=== PATIENT | male | born 2000 | race Caucasian/White ===

== ENCOUNTER → 2022-05-26 12:08 | Outpatient (CLI) | payer OTHER, MEDICAID, SELFPAY ==
--- NOTE | 2022-05-26 12:15 | DI.CT.S_ITS ---
PROCEDURE: CT SINUS SCREEN WO CON INDICATIONS: Eval and Treat- chronic nasal obstruction TECHNIQUE: Noncontrast 3.0 mm axial images acquired from the frontal sinuses to the mid-sella, with coronal and sagittal reformats. For radiation dose reduction, the following was used: automated exposure control, adjustment of mA and/or kV according to patient size. COMPARISON: None. FINDINGS: Image quality: Excellent. Sinuses: Sinuses are clear. No areas of mucosal thickening, fluid levels, mucous retention cysts lists or polyps. The inferior most aspect of the maxillary sinuses are not included within the field of view and cannot be evaluated. Ostiomeatal Complexes: Ostiomeatal complexes are patent. No Elisa cells. Miscellaneous: Visualized intra-orbital contents are normal. No brook bullosa. There is a right middle paradoxical turbinate curvature. Mild rightward nasal septal deviation. There is mild hypertrophy of the right middle and inferior turbinates compared to the left. IMPRESSION: Sinuses and ostiomeatal complexes are clear. Dictated by: Marcelina Abraham M.D. on 05/26/2022 at 12:56 Approved by: Marcelina Abraham M.D. on 05/26/2022 at 12:59
== END ==
PROVIDERS: PCP Family Medicine; Referring Provider Family Medicine; Visit Provider Family Medicine
DX: J34.89 Other specified disorders of nose and nasal sinuses (principal); J34.2 Deviated nasal septum; J34.3 Hypertrophy of nasal turbinates
CPT/HCPCS: 70486

== ENCOUNTER → 2023-03-01 11:04 | Outpatient (CLI) | payer OTHER, SELFPAY ==
--- NOTE | 2023-03-01 11:05 | DI.RAD.S_ITS ---
PROCEDURE: XR ANKLE RT MIN 3V INDICATIONS: pain x 1 wk TECHNIQUE: 3 views of the ankle were acquired. COMPARISON: None. FINDINGS: Bones: No fractures or dislocations. Ankle mortise is normally aligned. No suspicious bony lesions. Soft tissues: No tibiotalar joint effusion. Achilles tendon appears normal. IMPRESSION: No visualized acute fracture or dislocation. However, if clinical concern and/or pain persist, short interval imaging followup in 7-10 days is recommended, as occult injury cannot be definitively excluded. Dictated by: Marcelina Abraham M.D. on 03/01/2023 at 15:53 Approved by: Marcelina Abraham M.D. on 03/01/2023 at 15:53
--- NOTE | 2023-03-01 11:05 | DI.RAD.S_ITS ---
PROCEDURE: XR LUMBAR SPINE 2-3V INDICATIONS: low back pain TECHNIQUE: 3 views of the lumbar spine were acquired. COMPARISON: None. FINDINGS: Bones: There is appearance of transitional anatomy with what appears to be lumbarization of the 1st sacral vertebral body. However, prior to any surgical intervention, recommend full x-ray spine series for more accurate assessment and numbering. Minimal disc space narrowing is present within the lower lumbar spine. Soft tissues: Overlying bowel gas pattern is normal. No suspicious soft tissue calcifications. IMPRESSION: No visualized acute fracture or dislocation. However, if clinical concern and/or pain persist, short interval imaging followup in 7-10 days is recommended, as occult injury cannot be definitively excluded. Dictated by: Marcelina Abraham M.D. on 03/01/2023 at 15:53 Approved by: Marcelina Abraham M.D. on 03/01/2023 at 15:54
[2023-03-01 12:00] LABS: Add Manual Diff / Slide Review NO; Basophils Absolute Auto 100 /uL (0-100); Basophils Percent Auto 1.4 % (0-2); Eosinophils Absolute Auto 100 /uL (0-450); Eosinophils Percent Auto 1.7 % (2-4); Hematocrit 43.6 % (41-53); Lymphocytes Absolute Auto 1600 /uL (1100-4500); Lymphocytes Percent Auto 31.2 % (25-40); Mean Corpuscular HGB Conc 34.3 % (30-36); Mean Corpuscular Hemoglobin 31.4 PG (26-34); Mean Corpuscular Volume 91.7 fL (80-100); Monocytes Absolute Auto 400 /uL (0-900); Monocytes Percent Auto 7.6 % (3-14); Neutrophils Absolute Auto 2900 /uL (1500-7000); Neutrophils Percent Auto 58.1 % (50-75); Platelet Count 281 X10^3/uL (150-400); Red Blood Cell Count 4.76 X10^6/uL (4.5-5.9); Red Cell Distribution Width 12.4 % (11.6-14.8)
[2023-03-01 12:26] LABS: Alanine Aminotransferase 41 IU/L (<50); Albumin 4.5 g/dL (3.5-5.0); Albumin Globulin Ratio 1.7 (1.0-2.8); Alkaline Phosphatase 43 U/L (38-126); BUN Creatinine Ratio 24.6 (6-22); Bilirubin Total 0.8 mg/dL (0.2-1.3); Blood Urea Nitrogen 17 mg/dL (9-20); C-Reactive Protein Quant < 0.5 mg/dL (<1.0); Carbon Dioxide 27 mmol/L (22-32); Chloride 103 mmol/L (98-107); Estimated Glomerular Filt Rate > 60 mL/min (>60); Globulin 2.6 g/dL (1.7-4.1); Glucose 90 mg/dL (70-100); Potassium 4.4 mmol/L (3.4-5.1); Sodium 139 mmol/L (137-145); Total Protein 7.1 g/dL (6.3-8.2); Uric Acid 4.8 mg/dL (3.5-8.5)
[2023-03-01 12:49] LABS: Erythrocyte Sedimentation Rate 1 MM/HR (0-15)
[2023-03-03 16:08] LABS: HEMOLYSIS 15 (0-50)
[2023-03-03 16:09] LABS: Aspartate Aminotransferase 38 IU/L (17-59)
== END ==
PROVIDERS: PCP Family Medicine; Referring Provider Family Medicine; Visit Provider Family Medicine
DX: M25.571 Pain in right ankle and joints of right foot (principal); M54.50 Low back pain, unspecified; M25.551 Pain in right hip
CPT/HCPCS: 36415; 72100; 73610; 80053; 84550; 85025; 85651; 86140

== ENCOUNTER 2023-03-02 16:49 | Emergency (ER) | payer OTHER, SELFPAY ==
[2023-03-02 16:57] VITALS: BP 130/80; PULSE 90; RESP 18; TEMP 36.7; O2SAT 97; BMI 26.4
--- NOTE | 2023-03-02 18:52 | ED.BACK ---
HPI - Back Pain/Injury <DIPAK Archuleta - Last Filed: 03/02/23 18:58> General Chief Complaint: Back Pain/Injury Stated Complaint: lower back, sciatica, rt ankle pain, no known inju Source: patient History of Present Illness HPI Narrative: [age] year male with right-sided low back pain x1 month. 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 Patient has been known to collapse at home due to weakness in his right leg. Patient denies any loss of control of bowel or bladder or lower extremity numbness and tingling. Related Data Home Medications Medication Instructions Recorded Confirmed methocarbamol 750 mg tablet mg PO 03/01/23 03/01/23 Previous Rx's Medication Instructions Recorded methylprednisolone 4 mg tablets in See Rx Instructions PO .COMPLEX 03/02/23 a dose pack (Medrol ([place])) Sciatica #21 ea oxycodone-acetaminophen 5 mg-325 1 tab PO Q4-6H PRN pain #10 tabs 03/02/23 mg tablet (Percocet) Allergies Allergy/AdvReac Type Severity Reaction Status Date / Time amoxicillin AdvReac Unknown Verified 03/02/23 17:03 Penicillins AdvReac Unknown Verified 03/02/23 17:03 Review of Systems <DIPAK Archuleta - Last Filed: 03/02/23 18:58> Review of Systems Narrative: Narrative: See HPI. GENERAL: Denies chills, fatigue, fever, sweats. HEENT: Denies sinus pain, ear pain, sore throat, difficulty swallowing, dizziness. RESPIRATORY: Denies dyspnea, cough, wheezing, sputum. CARDIOVASCULAR: Denies chest pain, palpitations, edema. GASTROINTESTINAL: Denies nausea, vomiting, abdominal pain, diarrhea, constipation. : Denies dysuria, frequency, incontinence, hematuria, urinary retention, flank pain, loss of control of bowel or bladder. MSK: Endorses right-sided low back/sciatica pain with occasional weakness. SKIN: Denies rash, skin lesions, or pruritis. NEUROLOGIC: Denies weakness, dizziness, headache, numbness, confusion. PSYCHIATRIC: No concerning psychosocial issues. Patient History <DIPAK Archuleta - Last Filed: 03/02/23 18:58> Medical History Acne (~2013) Anxiety (~2018) Migraines (~2013) Headache (~2009) Foot pain (~2015) Ankle pain (~2020) Depression (~2017) Obstruction of paranasal sinus Encounter for well adult exam without abnormal findings Family History Father Diabetes mellitus Hypertension Hyperlipidemia Mental health problem Mother Mental health problem Brother Mental health problem Grandfather History of heart disease Hypertension Hyperlipidemia Stroke Grandfather History of heart disease Hyperlipidemia Hypertension Social History Smoking Status: Never smoker Smoking Status: Never smoker alcohol intake frequency: a few times a month Substance Use Type: does not use Exam <DIPAK Archuleta - Last Filed: 03/02/23 18:58> Narrative Exam Narrative: Exam Narrative: GENERAL: This is a well-nourished, well-developed patient, in no acute distress HEAD: Atraumatic. Normocephalic. ENT: Nose without bleeding, purulent drainage. TAirway patent. TMs and canals clear. RESPIRATORY: Respiratory rate and effort are normal. MSK: Moves all extremities. Normal range of motion, no clubbing or edema. Neurovascularly intact. NEURO: A&O x 3. SKIN: Warm, dry, no rashes or lesions noted. 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 There is no asymmetry, swelling, bruising or wound. There is no paraspinal tenderness or CVA tenderness. SI joints nontender. No pain over spinous processes. No symptoms of cauda equina such as saddle anesthesia. Sensation is grossly intact. ROM is limited due to pain. SLE is positive on right side Reflexes 2-3 at patella and achilles bilaterally. Resistive strengths are within normal limits Gait is ataxic. Initial Vital Signs Initial Vital Signs: Vital Signs Temperature 98.1 F 03/02/23 16:57 Pulse Rate 90 03/02/23 16:57 Respiratory Rate 18 03/02/23 16:57 Blood Pressure 130/80 03/02/23 16:57 Pulse Oximetry 97 03/02/23 16:57 Oxygen Delivery Method Room Air 03/02/23 16:57 Reviewed <Abdi Rivera DO - Last Filed: 03/02/23 19:00> Initial Vital Signs Initial Vital Signs: Vital Signs Temperature 98.1 F 03/02/23 16:57 Pulse Rate 90 03/02/23 16:57 Respiratory Rate 18 03/02/23 16:57 Blood Pressure 130/80 03/02/23 16:57 Pulse Oximetry 97 03/02/23 16:57 Oxygen Delivery Method Room Air 03/02/23 16:57 Course <DIPAK Archuleta - Last Filed: 03/02/23 18:58> Vital Signs Vital signs: Vital Signs - 8 hr 03/02/23 16:57 Temperature 98.1 F Pulse Rate 90 Respiratory Rate 18 Blood Pressure 130/80 Pulse Oximetry 97 Oxygen Delivery Method Room Air <Abdi Rivera DO - Last Filed: 03/02/23 19:00> Vital Signs Vital signs: Vital Signs - 8 hr 03/02/23 16:57 Temperature 98.1 F Pulse Rate 90 Respiratory Rate 18 Blood Pressure 130/80 Pulse Oximetry 97 Oxygen Delivery Method Room Air MDM - Back Pain/Injury <DIPAK Archuleta - Last Filed: 03/02/23 18:58> Differential Diagnosis Differential diagnosis: Likely lumbar radiculopathy, sciatica and strain of lumbar region MDM Narrative Medical decision making narrative: 22-year-old male with right sciatic pain. X-rays, lab work and initial medications prescribed by Dr. Garcia yesterday. Patient was instructed to follow up with Dr. Reyes in 2 weeks. Will treat with a Medrol Dosepak and a short course of pain medications, for breakthrough pain only. Discussed plan of care and worsening symptoms that would necessitate a return visit to the emergency department. Patient and parents verbalized understanding and was agreeable with course of action. Discharge Plan Departure Patient Disposition: Home Clinical Impression: Sciatica Qualifiers: Laterality: right Qualified Code(s): M54.31 - Sciatica, right side Acute back pain Qualifiers: Back pain location: low back pain Back pain laterality: right Sciatica presence: with sciatica Sciatica laterality: sciatica of right side Qualified Code(s): M54.41 - Lumbago with sciatica, right side Instructions: DI for Back Pain With Sciatica Activity Restrictions/Additional Instructions: *You have been diagnosed with right-sided sciatic pain. We will treat this with a Medrol Dosepak and a short course of pain medications. Please continue using the previously recommended medications of Tylenol, NSAIDs and muscle relaxers. Please follow-up with your primary care provider as previously scheduled. You should refrain from going to work or engaging in prolonged standing, until you are feeling better. *What to do: *Please continue to take your regular medications as directed. [ x] New medication prescriptions sent to your pharmacy: [[facility]] [ ] New medication written as a paper prescription [ ] No new medications given *Please follow up with your primary care provider in 2-3 days, call for an appointment. Let them know you were seen in the Emergency Department and that we ask that you be seen in follow up. We will electronically transmit a record of today's note if your PCP is in our system *If you do not have a primary care provider please contact the [facility] Resource line at [phone]. They will ask some questions about your medical history and help get you set up with a doctor in the community. ? Return to ER if you should have any new, worsening or concerning symptoms, such as worsening pain, severe headache, confusion, chest pain, difficulty breathing, fever greater than 101 F, shaking chills, persistent vomiting to the point that you cannot drink fluids, or other new or worsening symptoms. Prescriptions: New methylprednisolone [Medrol ([place])] 4 mg tablets,dose pack See Rx Instructions .ROUTE .COMPLEX Qty: 21 0RF Rx Instructions: orally per package directions oxycodone-acetaminophen [Percocet] 5-325 mg tablet 1 tab PO Q4-6H PRN (Reason: pain) Qty: 10 0RF No Action methocarbamol 750 mg tablet PO Referrals: Eliceo Reyes DO [Primary Care Provider] - Stand Alone Forms: Patient Portal/API, Work Release Note ED Sign-out <Abdi Rivera DO - Last Filed: 03/02/23 19:00> Cosign ED Attending Cosangelature Attestation: Dr Rivera Co-Sign Statement: I was available for consultation during this patient's emergency department visit. This chart is signed by myself for administrative purposes only. I did not have direct contact with this patient during this visit. They were seen independently by the APC.
--- NOTE | 2023-03-02 19:12 | PC.NURSE ---
patient was seen, and assessed by the provider.
[2023-03-02 19:13] VITALS: BP 122/77; PULSE 70; RESP 12; O2SAT 99
== END 2023-03-02 19:51 | disposition home or self-care (01) ==
LOC: ED 20:28
PROVIDERS: Emergency Provider Registered Nurse; PCP Family Medicine
DX: M54.41 Lumbago with sciatica, right side (principal)
CPT/HCPCS: 99281; 99283

== ENCOUNTER → 2024-05-02 14:49 | Outpatient (CLI) | payer OTHER, SELFPAY ==
[2024-05-02 16:04] LABS: Influenza A - CEPHEID Flu A NEGATIVE (NEGATIVE); Influenza B - CEPHEID Flu B NEGATIVE (NEGATIVE); Respiratory Syncytial Virus Negative (Negative)
[2024-05-02 16:19] LABS: COVID-19 CEPHEID 4-PLEX PCR Negative (Negative)
== END ==
PROVIDERS: PCP Family Medicine; Visit Provider Nurse Practitioner Family
DX: Z20.828 Contact with and (suspected) exposure to other viral communicable diseases (principal); J02.9 Acute pharyngitis, unspecified
CPT/HCPCS: 0241U; 87070